=== PATIENT | male | born 1975 | race African-American/Black ===

== ENCOUNTER 2021-12-24 11:40 | Emergency (ER) | payer OTHER ==
[2021-12-24] MEDS ORDERED: Ibuprofen 600 MG Tab PO ONE (12:24)
== END 2021-12-24 14:00 | disposition home or self-care (01) ==
LOC: MW.ED 11:40
DX: S90.112A Contusion of left great toe without damage to nail, initial encounter (principal); W20.8XXA Other cause of strike by thrown, projected or falling object, initial encounter
CPT/HCPCS: 73630; 99283; A9270; 99282